=== PATIENT | male | born 1945 | race Caucasian/White ===

== ENCOUNTER 2016-10-13 14:00 | Inpatient (IN) | payer MEDICARE, BC ==
[~2016-10-13] VITALS: Ht 170.2 cm; Wt 82.7 kg
--- NOTE | ~2016-10-13 | OR ---
[facility] AGE[facility] 71 Y [address] ROOM: [place] [address] LOCATION: [facility] ADMIT DATE: 10/27/2016 OR/Procedure Report DISCHARGE DATE: FAMILY PHYSICIAN: Selena Tiwari PA-C ATTENDING PHYSICIAN: MAC CARRASCO SURGEON: Mac Carrasco MD WALLPAPER HANGER HELPER: YUMIKO Figueroa and Diego Lawrence CST/STERILE INSTRUMENT TECHNICIAN. DATE OF PROCEDURE: 10/27/2016 PREOPERATIVE DIAGNOSES: Right knee degenerative joint disease (OCD of medial femoral condyle with secondary degenerative joint disease.) POSTOPERATIVE DIAGNOSES: Right knee degenerative joint disease (OCD of medial femoral condyle with secondary degenerative joint disease.) PROCEDURE PERFORMED: Right knee medial compartment, unicompartment arthroplasty using Solomon Sebastian robotic arm guidance and computer navigation. ANESTHESIA: Spinal anesthesia plus adductor canal block plus periarticular local anesthesia (ropivacaine with epinephrine and Toradol). DRAINS: None. SPECIMEN: None. COMPLICATIONS: None. IMPLANTS: [place] Sebastian Restoris size 6 right medial tibial base plate with 9- mm X3, size 6 tibial polyethylene insert. [place] Sebastian Restoris size 5 right medial femoral component. DRAINS: None. SPECIMEN: None. COMPLICATIONS: None. ESTIMATED BLOOD LOSS: Less than 5 mL. INDICATION FOR PROCEDURE: Mr. Orozco is a 71-year-old male presenting with advanced right knee degenerative joint disease involving the medial compartment. Preoperative MRI has demonstrated a lesion of the medial femoral condyle [facility] 71 Y [address] ROOM: [place] [address] LOCATION: [facility] ADMIT DATE: 10/27/2016 OR/Procedure Report DISCHARGE DATE: FAMILY PHYSICIAN: Selena Tiwari PA-C ATTENDING PHYSICIAN: MAC CARRASCO consistent with OCD. The patient's radiographic degenerative changes are confined to the medial compartment. Risks, benefits, limitations, and alternatives to medial compartment arthroplasty versus total knee arthroplasty have been thoroughly reviewed, and the patient has given informed consent to receive either a medial compartment unicompartmental arthroplasty or total knee arthroplasty (depending on intraoperative findings and circumstances). We have specifically reviewed risks and implications of infection, deep venous thrombosis, pulmonary embolism, neurovascular complications, blood transfusion risks, stiffness, instability, wear, loosening, and potential need for revision (including potential need for conversion of medial compartment unicompartmental arthroplasty to total knee arthroplasty). Informed consent granted. DESCRIPTION OF PROCEDURE: The patient positioned supine after administration of regional anesthesia and prophylactic antibiotics. A well-padded pneumatic tourniquet was placed around the right proximal thigh, and the right lower extremity was prepped and draped with vigilant sterile technique. Examination under anesthesia demonstrated a mild effusion. There was no ligamentous insufficiency. Range of motion under anesthesia was from full extension to 140 degrees of flexion. There was no ligamentous insufficiency. The right lower extremity was elevated and exsanguinated with an Esmarch wrap, and the pneumatic tourniquet was inflated. A bridged medial arthrotomy was performed. There was a moderate amount of benign-appearing translucent synovial fluid. There were intermixed grade 3 and grade 4 degenerative changes throughout the medial femoral condyle. There were high-grade 3 degenerative changes at the anterior 2/3rds of the medial tibial plateau. There was a small osteophyte at the medial femoral condyle. There was superficial grade 3 chondromalacia at the apex of the patella. There was no significant articular cartilage degeneration noted at the visible portions of the lateral femoral condyle and lateral tibial plateau. The cruciate ligaments were intact. The visible portions of the lateral meniscus were normal. Having confirmed that the patient was an appropriate candidate for a medial compartment unicompartment arthroplasty, two femoral tracking pins and two tibial tracking pins were placed through 6-mm stab incisions placed directly anteriorly. The guide pins were placed across the near cortex and up to the far cortex of the tibia and femur respectively using appropriate soft tissue protectors, which were left in place throughout the case. The trackers were secured to the guide pins, and the knee was registered using the computer navigation system. PATIENT'S NAME: CLAIRE OROZCO [facility] AGE: 71 Y [address] ROOM: [address] [address] LOCATION: [facility] ADMIT DATE: 10/27/2016 OR/Procedure Report DISCHARGE DATE: FAMILY PHYSICIAN: Selena Tiwari PA-C ATTENDING PHYSICIAN: MAC CARRASCO It should be noted that there was proliferative synovitis in the prepatellar bursa and a small amount of fluid in the prepatellar bursa. A prepatellar bursectomy had been performed during the approach. After having registered the femur and tibia via osseous landmarks and a pointed probe, poses of the knee were taken throughout a full range of motion. It should be noted that resting tibial femoral alignment was 5 degrees. The computer software was utilized to adjust tibial and femoral projected alignment virtually in order to optimize alignment and ligamentous balance throughout a full range of motion. Next, the femoral and tibial osseous surfaces were prepared with the Fanzter robotic VUR unit. Degenerative remnants of the medial meniscus were excised. It should be noted that tibial and femoral check points had been placed within the proximal medial tibial metaphysis and the distal medial femoral metaphysis. Trial components were placed. Component alignment, tracking, and soft tissue balance was excellent throughout a full range of motion. Patellar tracking was optimal. All trial components were removed and prepared. Distal femoral and proximal tibial osseous surfaces were thoroughly irrigated and dried prior to cementing the final components in place. All visible excess cement was removed. The final tibial polyethylene insert was placed. The knee was placed throughout a full range of motion. Tibial femoral alignment in extension had been corrected to 1 degree of residual varus. Periarticular soft tissues were injected with local anesthetic. Component alignment and soft tissue tension and range of motion were confirmed to be optimal. Final range of motion was from 1 degree of hyperextension to 140 degrees of flexion. The entire joint space was thoroughly irrigated with sterile saline containing bacitracin with pulsatile lavage at this point as well as several times throughout the case. The medial arthrotomy was closed with multiple simple interrupted #1 Vicryl. Subcutaneous tissues were re-irrigated. The skin was closed with simple deep interrupted 0 Vicryl followed by superficial buried interrupted 2-0 Vicryl followed by surgical amee. The dressings consisted of Xeroform gauze, followed by Mepilex, followed by sterile gauze, and an Da wrap. There were no complications. It should be noted that the tibial and femoral check points were removed prior PATIENT'S NAME: CLAIRE OROZCO [facility] AGE: 71 Y [address] ROOM: [address] [address] LOCATION: [facility] ADMIT DATE: 10/27/2016 OR/Procedure Report DISCHARGE DATE: FAMILY PHYSICIAN: Selena Tiwari PA-C ATTENDING PHYSICIAN: MAC CARRASCO to wound closure. The Giulia pins were removed from the tibial and femoral shafts, and these incisions were infiltrated with local anesthetic, irrigated, and closed with superficial buried interrupted 3-0 Monocryl suture followed by Steri-Strips with benzoin and an occlusive Mepilex dressings. It should be noted that the physician's pizza hut assistant played an active, integral role throughout this entire operation. By providing expert retraction, they greatly facilitated and expedited safe and effective exposure of the distal femur, proximal tibia and patella for preparation and implantation of the components. They were also actively involved in the patient's positioning, prepping and draping, as well as wound closure. MD CARMEN TOMAS/susanl /[id number] d: 10/28/16 0724 t: 10/30/16 0752, OPERATIVE SUMMARY
[2016-10-13] MEDS ORDERED: DEXILANT30 MG PO (15:29)
[2016-10-13] MEDS ORDERED: ECOTRIN325 MG PO (15:30)
[2016-10-13] MEDS ORDERED: COQ-10100 MG PO (15:30)
[2016-10-13] MEDS ORDERED: PRAVACHOL40 MG PO (15:30)
[2016-10-13] MEDS ORDERED: K-TAB ER20 MEQ PO (15:31)
[2016-10-13] MEDS ORDERED: LASIX40 MG PO (15:31)
[2016-10-13] MEDS ORDERED: DOCUSATE SODIU100 MG PO (15:32)
[2016-10-13] MEDS ORDERED: RESTASIS1 EACH OPHTH (15:32)
[2016-10-13] MEDS ORDERED: LEVOTHYROXINE50 MCG PO (15:33)
[2016-10-13] MEDS ORDERED: NITROSTAT0.4 MG SL (15:33)
[2016-10-13] MEDS ORDERED: DUONEB INH (15:34)
[2016-10-13] MEDS ORDERED: PROAIR HFA8.5 GM INH (15:34)
[2016-10-28] MEDS ORDERED: ASPIRIN (CHILDR81 MG PO (10:12)
[2016-10-28] MEDS ORDERED: MIRALAX17 GM PO (10:15)
[2016-10-28] MEDS ORDERED: XARELTO10 MG PO (10:16)
[2016-10-28] MEDS ORDERED: CELEBREX200 MG PO (10:25)
[2016-10-28] MEDS ORDERED: NORCO 5-325 TA1 EACH PO (10:26)
== END 2016-10-28 16:40 | disposition disaster alternative care site (69) | DRG 470 ==
LOC: G3N 10-27 06:09
PROVIDERS: ADMIT Orthopaedic Surgery
DX: M17.11 Unilateral primary osteoarthritis, right knee (principal); E16.2 Hypoglycemia, unspecified; Z85.46 Personal history of malignant neoplasm of prostate; I25.10 Atherosclerotic heart disease of native coronary artery without angina pectoris; Z95.5 Presence of coronary angioplasty implant and graft; Z87.891 Personal history of nicotine dependence; K21.9 Gastro-esophageal reflux disease without esophagitis
CPT/HCPCS: C1713; C1776; J0690; J1100; J1885; J2001; J2250; J2405; J2795; J7030

== ENCOUNTER → 2016-10-15 | Outpatient (CLI) | payer MEDICARE, BC ==
[~2016-10-15] MED LIST: ASPIRIN (CHILDR81 MG PO; CELEBREX200 MG PO; COQ-10100 MG PO; DEXILANT30 MG PO; DOCUSATE SODIU100 MG PO; DUONEB INH; ECOTRIN325 MG PO; K-TAB ER20 MEQ PO; LASIX40 MG PO; LEVOTHYROXINE50 MCG PO; MIRALAX17 GM PO; NITROSTAT0.4 MG SL; NORCO 5-325 TA1 EACH PO; PRAVACHOL40 MG PO; PROAIR HFA8.5 GM INH; RESTASIS1 EACH OPHTH; XARELTO10 MG PO
== END | disposition disaster alternative care site (69) ==
LOC: GNJRC 10:27
DX: Z01.818 Encounter for other preprocedural examination (principal); M17.11 Unilateral primary osteoarthritis, right knee; M25.561 Pain in right knee